=== PATIENT | female | born 1995 | race American Indian/Alaskan Native ===

== ENCOUNTER 2019-10-31 21:09 | Emergency (ER) | payer MEDICAID ==
--- NOTE | 2019-10-31 22:02 | Event Note ---
ED Screening Note ED Screening Note: 18 weeks states she slipped and fell outside and fell onto her abdomen her FUNERAL PROFESSIONAL is at [facility] no vaginal bleeding /P:2/A:1 This initial assessment/diagnostic orders/clinical plan/treatment(s) is/are subject to change based on patients health status, clinical progression and re-assessment by fellow clinical providers in the ED. Further treatment and workup at subsequent clinical providers discretion. Patient/guardian urged not to elope from the ED as their condition may be serious if not clinically assessed and managed. Initial orders include: US abd, UA
[2019-10-31 22:05] VITALS: BP 146/83
[2019-10-31 23:39] LABS: Bilirubin,Urine NEG (Negative); Blood,Urine NEG (Negative); Color,Urine Yellow (Yellow); Mucus,Urine FEW /HPF; Protein,Urine <15 mg/dL mg/dL (Negative); Urobilinogen,Urine < 2.0 mg/dL (<2.0)
--- NOTE | 2019-11-01 00:17 | Emergency Department Report ---
ED HPI - General Chief complaint: Abdominal Pain Stated complaint: 18 WKS FELL ON STOMACH Time Seen by Provider: 10/31/19 22:01 Source: patient Mode of arrival: Ambulatory Limitations: No Limitations - History of Present Illness Initial comments: This is a 23-year-old /P:2/A:1 at 18 weeks who presents to the ED complaining of abdominal pain status post she slipped and fell outside and fell onto her abdomen. Patient states that incident happened 30 minutes prior to arrival to the ED. Dates she had some mild abdominal pain and is not feeling her baby move. Patient states that her DIALYSIS TECH is at [facility], Dr. Kenyetta Killian. She denies vaginal bleeding or vaginal discharge or vaginal leaking - Related Data Allergies Allergy/AdvReac Type Severity Reaction Status Date / Time Penicillins Allergy Swelling Verified 10/31/19 21:19 ED Review of Systems ROS: Stated complaint: 18 WKS FELL ON STOMACH Other details as noted in HPI Comment: All other systems reviewed and negative ED Past Medical Hx - Past Medical History Previous Medical History?: Yes Hx Psychiatric Treatment: Yes (ADHD,DEPRESSION) Hx Asthma: Yes - Surgical History Past Surgical History?: No - Social History Smoking Status: Never Smoker Substance Use Type: None ED Physical Exam - General Limitations: No Limitations General appearance: alert, in no apparent distress - Head Head exam: Present: atraumatic, normocephalic - Eye Eye exam: Present: normal appearance - ENT ENT exam: Present: mucous membranes moist - Neck Neck exam: Present: normal inspection - Respiratory Respiratory exam: Present: normal lung sounds bilaterally. Absent: respiratory distress - Cardiovascular Cardiovascular Exam: Present: regular rate, normal rhythm. Absent: systolic murmur, diastolic murmur, rubs, gallop - GI/Abdominal GI/Abdominal exam: Present: soft, normal bowel sounds - Extremities Exam Extremities exam: Present: normal inspection - Back Exam Back exam: Present: normal inspection - Neurological Exam Neurological exam: Present: alert, oriented X3 - Psychiatric Psychiatric exam: Present: normal affect, normal mood - Skin Skin exam: Present: warm, dry, intact, normal color. Absent: rash ED Course Vital Signs 10/31/19 22:01 Temperature 98.5 F Pulse Rate 97 H Respiratory 18 Rate Blood Pressure 146/83 O2 Sat by Pulse 97 Oximetry - Consultations Consultation #1: Discussed case with [facility] education teacher physician Dr. Constantino, who states patient can be seen outpatient in the morning 11/01/19 23:56 ED Medical Decision Making - Medical Decision Making This is a 23-year-old female presents with abdominal pain status post fall. All labs were normal ED. Bedside ultrasound completed, ultrasound shows cardiac activity and heart rate of about 144. Ultrasound also picked up movement. Patient did not have any incident of vaginal bleeding throughout the ED stay Discussed case with Dr. Constantino the on-call DIALYSIS TECH at [facility] who states that patient can follow-up outpatient with Dr. Killian in the morning Vital signs are normal patient is in no acute distress. Discussed with patient she may take Tylenol as needed for abdominal pain. Discussed with patient if any signs of worsening pain such as cramping or vaginal bleeding to return to the ED immediately Critical care attestation.: If time is entered above; I have spent that time in minutes in the direct care of this critically ill patient, excluding procedure time. ED Disposition Clinical Impression: Abdominal pain during , Fall Disposition: ELOPED Is pt being admited?: No Does the pt Need Aspirin: No Condition: Stable Instructions: Abdominal Pain (ED) Additional Instructions: Make sure to follow up with the Dr. Gavin DIALYSIS TECH in the morning as discussed. Take Tylenol as needed for pain If you have any worsening symptoms or develop new symptoms please return to ED immediately. Referrals: PRIMARY CAREMD [Primary Care Provider] - 3-5 Days KENYETTA KILLIAN MD [Referring] - 3-5 Days Forms: Accompanied Note, Work/School Release Form(ED) Time of Disposition: 00:25
== END 2019-11-01 00:57 | disposition left against medical advice (07) ==
LOC: ED 21:09
DX: O26.892 Other specified pregnancy related conditions, second trimester (principal); R10.9 Unspecified abdominal pain; F32.9 Major depressive disorder, single episode, unspecified; J45.909 Unspecified asthma, uncomplicated; Z88.0 Allergy status to penicillin; Z3A.18 18 weeks gestation of pregnancy; W01.0XXA Fall on same level from slipping, tripping and stumbling without subsequent striking against object, initial encounter; Y93.89 Activity, other specified; Y92.89 Other specified places as the place of occurrence of the external cause; Y99.8 Other external cause status
CPT/HCPCS: 81001

== ENCOUNTER 2020-02-13 14:43 | Outpatient (CLI) | payer MEDICAID ==
[2020-02-13] MEDS ORDERED: LACTATED RINGERS 1,000 ML IV ONE (16:03)
[2020-02-13 16:33] LABS: Bacteria,Urine 1+ /HPF (Negative); Bilirubin,Urine NEG (Negative); Blood,Urine NEG (Negative); Color,Urine Yellow (Yellow); Mucus,Urine 1+ /HPF; Protein,Urine <15 mg/dL mg/dL (Negative); Urobilinogen,Urine < 2.0 mg/dL (<2.0)
[2020-02-13 17:59] VITALS: BP 91/51
== END 2020-02-13 18:24 | disposition home or self-care (01) ==
LOC: TRG 14:43 → APU 15:30 → TRG 18:24
PROVIDERS: ATTEND Obstetrics & Gynecology
DX: O26.893 Other specified pregnancy related conditions, third trimester (principal); R10.30 Lower abdominal pain, unspecified; R19.7 Diarrhea, unspecified; O99.513 Diseases of the respiratory system complicating pregnancy, third trimester; J45.909 Unspecified asthma, uncomplicated; Z3A.33 33 weeks gestation of pregnancy
CPT/HCPCS: 59025; 81001; 96360; J7120; 96361

== ENCOUNTER 2021-04-19 19:25 | Emergency (ER) | payer MEDICAID ==
--- NOTE | 2021-04-19 20:44 | XRay Report ---
RIGHT ANKLE 3 VIEWS 2025 INDICATION: pain swelling COMPARISON: None available. FINDINGS: Prominent lateral soft tissue swelling is seen. No fractures or dislocations are obvious. Signer Name: Javier Morales MD Signed: 04/19/2021 8:39 PM Workstation Name: [id number]
--- NOTE | 2021-04-19 23:00 | XRay Report ---
Right foreleg 4 views INDICATION: Right foreleg pain IMPRESSION: The right foreleg appears intact. Prominent edema surrounds the ankle. Signer Name: Tigre Flores MD Signed: 04/19/2021 10:55 PM Workstation Name: [id number]
--- NOTE | 2021-04-19 23:53 | Emergency Department Report ---
ED Lower Extremity HPI - General Chief Complaint: Extremity Injury, Lower Stated Complaint: FELL AND FRACTURE (R) ANKLE Time Seen by Provider: 04/19/21 22:26 Source: patient Mode of arrival: Wheelchair Limitations: No Limitations - History of Present Illness MD Complaint: leg injury, ankle injury -: Sudden, days(s) Injury: Leg: Right, Ankle: Right Type of Injury: inversion (Accidentally stepped in a hole) Severity: moderate, severe Improves With: nothing Context: walking Associated Symptoms: swelling, unable to bear weight - Related Data Previous Rx's Medication Instructions Recorded Last Taken Type Nitrofurantoin Macrocrystal 100 mg PO BID #14 capsule 02/13/20 Unknown Rx [Nitrofurantoin] Ketorolac [Toradol] 10 mg PO Q6H PRN #14 tablet 04/19/21 Unknown Rx Allergies Allergy/AdvReac Type Severity Reaction Status Date / Time Penicillins Allergy Swelling Verified 10/31/19 21:19 ED Review of Systems ROS: Stated complaint: FELL AND FRACTURE (R) ANKLE Other details as noted in HPI Comment: All other systems reviewed and negative ED Past Medical Hx - Past Medical History Previous Medical History?: Yes Hx Hypertension: No Hx Diabetes: No Hx Deep Vein Thrombosis: No Hx Renal Disease: No Hx Sickle Cell Disease: No Hx Seizures: No Hx Psychiatric Treatment: Yes (ADHD,DEPRESSION) Hx Asthma: Yes Hx HIV: No - Surgical History Past Surgical History?: Yes Additional Surgical History: right knee, tonsils - Social History Smoking Status: Never Smoker Substance Use Type: None - Medications Home Medications: Home Medications Medication Instructions Recorded Confirmed Last Taken Type Nitrofurantoin Macrocrystal 100 mg PO BID #14 capsule 02/13/20 Unknown Rx [Nitrofurantoin] Ketorolac [Toradol] 10 mg PO Q6H PRN #14 tablet 04/19/21 Unknown Rx ED Physical Exam - General Limitations: No Limitations General appearance: alert, in no apparent distress - Head Head exam: Present: atraumatic, normocephalic - Eye Eye exam: Present: normal appearance, PERRL, EOMI Pupils: Present: normal accommodation - ENT ENT exam: Present: normal exam, normal orophraynx, mucous membranes moist, TM's normal bilaterally - Neck Neck exam: Present: normal inspection, full ROM - Respiratory Respiratory exam: Present: normal lung sounds bilaterally. Absent: respiratory distress - Cardiovascular Cardiovascular Exam: Present: regular rate, normal rhythm. Absent: systolic murmur, diastolic murmur, rubs, gallop - GI/Abdominal GI/Abdominal exam: Present: soft, normal bowel sounds - Extremities Exam Extremities exam: Present: normal inspection - Back Exam Back exam: Present: normal inspection. Absent: CVA tenderness (R), CVA tenderness (L) - Neurological Exam Neurological exam: Present: alert, oriented X3, CN II-XII intact - Psychiatric Psychiatric exam: Present: normal affect, normal mood - Skin Skin exam: Present: warm, dry, intact, normal color. Absent: rash ED Course Vital Signs 04/19/21 04/20/21 20:11 00:41 Temperature 98.8 F 98.2 F Pulse Rate 89 79 Respiratory 18 16 Rate Blood Pressure 128/83 Blood Pressure 122/62 [Right] O2 Sat by Pulse 99 100 Oximetry ED Lower Extremity MDM - Radiology Data Radiology results: report reviewed [facility] [address] [place] [address] XRay Report Signed Patient: FRANCIS RAVI MR#: [id number] : 1995 Acct:[id number] Age/Sex: 25 / F ADM Date: 04/19/21 Loc: ED Attending Dr: Ordering Physician: KENNA MARTIN Date of Service: 04/19/21 Procedure(s): XR tibia fibula 2V RT Accession Number(s): [id number] cc: KENNA MARTIN Fluoro Time In Minutes: Right foreleg 4 views INDICATION: Right foreleg pain IMPRESSION: The right foreleg appears intact. Prominent edema surrounds the ankle. Signer Name: Tigre Flores MD Signed: 04/19/2021 10:55 PM Workstation Name: [id number] Transcribed By: BC Dictated By: Tigre Flores MD Electronically Authenticated By: Tigre Flores MD Signed Date/Time: 04/19/212254 DD/ 54 TD/TT: Critical care attestation.: If time is entered above; I have spent that time in minutes in the direct care of this critically ill patient, excluding procedure time. ED Disposition Clinical Impression: Ankle sprain Disposition: HOME / SELF CARE / HOMELESS Is pt being admited?: No Does the pt Need Aspirin: No Condition: Stable Instructions: How to Use a Stirrup Ankle Brace, [id number], How to Use Cold Therapy, How to Use a Stirrup Ankle Brace Prescriptions: Ketorolac [Toradol] 10 mg PO Q6H PRN #14 tablet PRN Reason: Pain Referrals: RICK MCKOY MD [Staff Physician] - 3-5 Days
[2021-04-20 00:52] VITALS: BP 122/62
== END 2021-04-20 00:43 | disposition home or self-care (01) ==
LOC: ED 19:25
DX: S93.401A Sprain of unspecified ligament of right ankle, initial encounter (principal); W19.XXXA Unspecified fall, initial encounter; F32.9 Major depressive disorder, single episode, unspecified; Z88.0 Allergy status to penicillin; J45.909 Unspecified asthma, uncomplicated; Y93.89 Activity, other specified; Y92.89 Other specified places as the place of occurrence of the external cause; Y99.8 Other external cause status
CPT/HCPCS: 99283

== ENCOUNTER 2021-07-06 15:58 | Emergency (ER) | payer MEDICAID ==
[2021-07-06 17:33] LABS: Basophils % (Auto) 0.7 % (0.0-1.8); Eosinophils # (Auto) 0.1 K/mm3 (0.0-0.4); Hematocrit 41.1 % (30.3-42.9); Hemoglobin 13.1 gm/dl (10.1-14.3); Lymphocytes # (Auto) 1.3 K/mm3 (1.2-5.4); Mean Corpuscular HGB Conc 32 % (30-34); Mean Corpuscular Volume 86 fl (79-97); Monocytes # (Auto) 0.3 K/mm3 (0.0-0.8); Monocytes % (Auto) 7.4 % (0.0-7.3); Platelet Count 251 K/mm3 (140-440); Red Blood Count 4.78 M/mm3 (3.65-5.03); Red Cell Distribution Width 14.6 % (13.2-15.2)
[2021-07-06 17:54] LABS: Alanine Aminotransferase 14 units/L (7-56); Albumin 3.8 g/dL (3.9-5); Blood Urea Nitrogen 10 mg/dL (7-17); Hemolysis Index 2
[2021-07-06 17:55] LABS: BUN/Creatinine Ratio 20
[2021-07-06 18:22] LABS: Bacteria,Urine 1+ /HPF (Negative); Mucus,Urine 2+ /HPF
[2021-07-06 18:44] LABS: Bilirubin,Urine Negative (Negative); Blood,Urine Trace (Negative); Color,Urine Yellow (Yellow); Urobilinogen,Urine < 2.0 mg/dL (<2.0)
--- NOTE | 2021-07-06 18:44 | Emergency Department Report ---
ED Female HPI - General Chief complaint: Nausea/Vomiting/Diarrhea Stated complaint: 9WEEKS LOWER AB PAIN Time Seen by Provider: 07/06/21 16:38 Source: patient Mode of arrival: Ambulatory Limitations: No Limitations - History of Present Illness Initial comments: 25-year-old -Citizen Of [place] female that is morbid obese and reports she is 9 weeks with a last menstrual period of May 03 presents to the emergency room for nausea vomiting and lower abdominal pain. Patient is 5 para 3 with 1 in 2017. Patient has not started OB care and is supposed to follow-up at [facility]. Patient states she takes her vitamins. She has a past medical history of ADHD bipolar anxiety and depression. She states that she had stopped her Adderall and Seroquel for her . She reports she is allergic to penicillin causes anaphylactic reaction as well as a rash. MD Complaint: pelvic pain Onset/Timin -: days(s) Location: suprapubic Severity scale (0 -10): 3 Improves with: none Worsens with: none Are you Now?: Yes Last Menstrual Period: 05/03/21 EDC: 02/07/22 Associated Symptoms: nausea/vomiting. denies: vaginal discharge, vaginal bleeding, abdominal pain, headaches, loss of appetite, dysuria, hematuria - Related Data Sexually active: Yes : 5 Para: 3 A: 1 Previous Rx's Medication Instructions Recorded Last Taken Type Nitrofurantoin Macrocrystal 100 mg PO BID #14 capsule 02/13/20 Unknown Rx [Nitrofurantoin] Ketorolac [Toradol] 10 mg PO Q6H PRN #14 tablet 04/19/21 Unknown Rx Allergies Allergy/AdvReac Type Severity Reaction Status Date / Time Penicillins Allergy Swelling Verified 10/31/19 21:19 ED Review of Systems ROS: Stated complaint: 9WEEKS LOWER AB PAIN Other details as noted in HPI Comment: All other systems reviewed and negative ED Past Medical Hx - Past Medical History Previous Medical History?: Yes Hx Hypertension: No Hx Diabetes: No Hx Deep Vein Thrombosis: No Hx Renal Disease: No Hx Sickle Cell Disease: No Hx Seizures: No Hx Psychiatric Treatment: Yes (ADHD,DEPRESSION) Hx Asthma: Yes Hx HIV: No Additional medical history: Vaginal delivery x 3, Miscarriage - Surgical History Past Surgical History?: Yes Additional Surgical History: right knee, tonsils - Social History Smoking Status: Never Smoker Substance Use Type: None - Medications Home Medications: Home Medications Medication Instructions Recorded Confirmed Last Taken Type Nitrofurantoin Macrocrystal 100 mg PO BID #14 capsule 02/13/20 Unknown Rx [Nitrofurantoin] Ketorolac [Toradol] 10 mg PO Q6H PRN #14 tablet 04/19/21 Unknown Rx ED Physical Exam - General Limitations: No Limitations General appearance: alert, in no apparent distress, obese - Head Head exam: Present: atraumatic, normocephalic - Eye Eye exam: Present: normal appearance - ENT ENT exam: Present: mucous membranes moist - Neck Neck exam: Present: normal inspection - Respiratory Respiratory exam: Present: normal lung sounds bilaterally. Absent: respiratory distress - Cardiovascular Cardiovascular Exam: Present: regular rate, normal rhythm. Absent: systolic murmur, diastolic murmur, rubs, gallop - GI/Abdominal GI/Abdominal exam: Present: soft, normal bowel sounds - Extremities Exam Extremities exam: Present: normal inspection - Back Exam Back exam: Present: normal inspection - Neurological Exam Neurological exam: Present: alert, oriented X3, normal gait - Psychiatric Psychiatric exam: Present: normal affect, normal mood - Skin Skin exam: Present: warm, dry, intact, normal color. Absent: rash ED Course Vital Signs 07/06/21 16:25 Temperature 98.5 F Pulse Rate 91 H Respiratory 18 Rate Blood Pressure 111/78 O2 Sat by Pulse 99 Oximetry ED Medical Decision Making - Lab Data Result diagrams: 07/06/21 17:04 07/06/21 17:04 - Medical Decision Making 25-year-old -Citizen Of [place] female that is morbid obese and reports she is 9 weeks with a last menstrual period of May 03 presents to the emergency room for nausea vomiting and lower abdominal pain. Patient is 5 para 3 with 1 in 2017. Patient has not started OB care and is supposed to follow-up at [facility]. Patient states she takes her vitamins. She has a past medical history of ADHD bipolar anxiety and depression. She states that she had stopped her Adderall and Seroquel for her . She reports she is allergic to penicillin causes anaphylactic reaction as well as a rash. CBC CMP hCG urinalysis Patient reports that she wants to leave AMA she does not want to wait she will go home and take some Tylenol. AMA with witness: the patient is alert and oriented 3. The patient exhibits decision-making capacity. The patient is free from distracting injury. The risks of leaving without a complete medical examination, and AGAINST MEDICAL ADVICE, were explained to the patient, and they included , disability, paralysis, permanent loss of quality of life. The patient verbalized understanding to these, and was able to articulate these risks in their own words, and this conversation is witnessed by *meenakshi [facility] Critical care attestation.: If time is entered above; I have spent that time in minutes in the direct care of this critically ill patient, excluding procedure time. ED Disposition Clinical Impression: Lower abdominal pain Disposition: LEFT AGAINST MEDICAL ADVICE Is pt being admited?: No Does the pt Need Aspirin: No Condition: Undetermined Referrals: PRIMARY CARE, [Primary Care Provider] - 3-5 Days Forms: AMA Form Time of Disposition: 18:49
[2021-07-06 18:45] VITALS: BP 111/78
== END 2021-07-06 19:53 | disposition left against medical advice (07) ==
LOC: ED 15:58
DX: O26.891 Other specified pregnancy related conditions, first trimester (principal); R10.30 Lower abdominal pain, unspecified; O21.9 Vomiting of pregnancy, unspecified; J45.909 Unspecified asthma, uncomplicated; Z88.0 Allergy status to penicillin; Z3A.09 9 weeks gestation of pregnancy
CPT/HCPCS: 36415; 80053; 81001; 84702; 85025; 87086; 99283

== ENCOUNTER 2022-01-01 12:25 | Outpatient (CLI) | payer MEDICAID ==
[2022-01-01 13:07] VITALS: BP 124/60
[2022-01-01] MEDS ORDERED: LACTATED RINGERS 1,000 ML IV ONE (13:30)
[2022-01-01 13:55] LABS: Bilirubin,Urine NEG (Negative); Blood,Urine NEG (Negative); Color,Urine Yellow (Yellow); Hyaline Casts,Urine 3 /LPF; Mucus,Urine 3+ /HPF; Protein,Urine <15 mg/dL mg/dL (Negative); Urobilinogen,Urine < 2.0 mg/dL (<2.0)
[2022-01-01 14:16] LABS: Amphetamine Screen,Urine Negative; Benzodiazepines Screen,Urine Negative; Cannabinoid Screen,Urine Negative; Cocaine Screen,Urine Negative; Methadone Screen,Urine Negative; Opiate Screen,Urine Negative
--- NOTE | 2022-01-01 18:12 | Ultrasound Report ---
US OB BPP wo non-stress, US OB follow up INDICATION / CLINICAL INFORMATION: well being. COMPARISON: None available. FINDINGS: Single live intrauterine : MEASUREMENTS: - Biparietal Diameter = 9.0 cm = 36 weeks 3 days - Head Circumference = 33.0 cm = 37 weeks 4 days - Abdominal Circumference = 30.9 cm = 34 weeks 6 days - Femur Length = 6.9 cm = 35 weeks 2 days - Estimated Weight (in grams, if calculated): 2669 BREATHING MOVEMENT = 2 GROSS BODY MOVEMENT = 2 TONE = 2 QUALITATIVE AMNIOTIC FLUID VOLUME = 2 TOTAL BIOPHYSICAL SCORE = 04/07 AMNIOTIC FLUID INDEX (cm) = 10.1 PRESENTATION: Cephalic. HEART RATE (beats per minute): 161 IMPRESSION: 1. Single live intrauterine , as above. No significant abnormality. 2. biophysical profile = 04/07 Signer Name: Mike Fernandez MD Signed: 01/01/2022 6:08 PM Workstation Name: [id number]
== END 2022-01-01 14:35 | disposition home or self-care (01) ==
LOC: TRG 12:25 → APU 12:27 → TRG 14:35
PROVIDERS: ATTEND Obstetrics & Gynecology
DX: O47.03 False labor before 37 completed weeks of gestation, third trimester (principal); Z3A.34 34 weeks gestation of pregnancy
CPT/HCPCS: 36415; 59025; 76816; 76819; 80307; 81001; 82731; 84112